=== PATIENT | female | born 1980 | race American Indian/Alaskan Native ===

== ENCOUNTER 2016-09-09 05:12 | Inpatient (IN) | payer MEDICAID, MEDICARE ==
[2016-09-09 05:24] VITALS: BMI 32.8
[2016-09-09 05:25] VITALS: O2SAT 95
--- NOTE | 2016-09-09 05:25 | ED PDOC ---
Psych Transfer Clearance - Clearance Statement Clearance Statement: Reviewed vital signs, lab results and transfer papers. Patient clinically stable for psychiatric admission.
[2016-09-09] MEDS ORDERED: Alum-Mag Hydrox-Simethicone Susp (30 mL) PO PRN (05:42)
[2016-09-09] MEDS ORDERED: DiphenhydrAMINE 50 mg/ml Inj IM PRN (05:42)
[2016-09-09] MEDS ORDERED: Magnesium Hydroxide Susp 30 ml UD PO PRN (05:42)
[2016-09-09 09:26] LABS: T4 9.13 ug/dl (5.5-11.0)
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
[2016-09-09] MEDS: Divalproex 500 mg DR(BID formulation) PO SCH (17:23)
[2016-09-10] MEDS: Divalproex 500 mg DR(BID formulation) PO SCH ×2 (09:19→17:17)
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
[2016-09-11] MEDS: Divalproex 500 mg DR(BID formulation) PO SCH ×2 (09:24→17:48)
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
[2016-09-12] MEDS: Divalproex 500 mg DR(BID formulation) PO SCH ×2 (12:35→17:16)
[2016-09-13] MEDS: Divalproex 500 mg DR(BID formulation) PO SCH ×2 (08:38→17:54)
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
[2016-09-14] MEDS: Divalproex 500 mg DR(BID formulation) PO SCH ×2 (10:59→17:33)
--- NOTE | 2016-09-14 10:59 | PCM.PYCHPN ---
Psychiatric Progress Note - Psychiatric Progress Note Patient seen today, length of contact: discussed with team Patient Chief Complaint: i am fine Problems Identified/Issues Discussed: pt still isolates in room. seems disinterested in groups. she will not allow and increase in risperdal. Diagnostic Results: valproic acid 68 Medication Change: No Medical Record Reviewed: Yes Mental Status Examination - Cognitive Function Orientation: Person, Place, Situation Memory: Intact Attention: WNL Concentration: WNL Association: Loose Fund of Knowledge: WNL Decription of patient's judgement and insights: fair - Mood Mood: Depressed - Affect Affect: Constricted - Speech Speech: Appropriate - Formal Thought Process Formal Thought Process: Paranoia, Loosening of associations Psychotic Thoughts and Behaviors: internally preoccupied - Suicidal Ideation Suicidal Ideation: No - Homicidal Ideation Homicidal Ideation: No Goal/Treatment Plan - Goal/Treatment Plan Need for Continued Stay: Remain at risks for inpatient hospitalization, Severe functional impairment Progress Toward Problem(s) and Goals/Treatment Plan: schizoaffective disorder, bipolar type continue current treatment continue risperdal at current dose and monitor encourage participation in groups refer to [facility] services Estimated Date of D/C: 09/15/16
[2016-09-14 12:19] VITALS: RESP 18
[2016-09-15] MEDS: Divalproex 500 mg DR(BID formulation) PO SCH ×3 (09:35→17:59)
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
[2016-09-15] MEDS: Risperidone M tab 1 MG PO SCH (17:57)
[2016-09-15] MEDS ORDERED: Risperidone M tab 1 MG PO SCH (21:00)
[2016-09-16] MEDS: Risperidone M tab 1 MG PO SCH (08:34)
[2016-09-16] MEDS: Divalproex 500 mg DR(BID formulation) PO SCH ×2 (08:34→17:45)
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
[2016-09-16 11:32] LABS: BASO # 0.1 K/uL (0.0-0.2); BASO % 0.9 % (0.0-2.0); EOS # 0.3 K/uL (0.0-0.7); EOS % 4.1 % (0.0-4.0); HEMOGLOBIN 14.1 g/dL (12.0-16.0); LYMPH # 2.7 K/uL (1.0-4.3); LYMPH % 35.6 % (20.0-40.0); MEAN CELL VOLUME 94.1 fl (81.0-99.0); MEAN CORPUSCULAR HEMOGLOBIN 31.4 pg (27.0-31.0); MEAN CORPUSCULAR HGB CONC 33.4 g/dL (33.0-37.0); MEAN PLATELET VOLUME 8.5 fl (7.2-11.7); MONO # 0.6 K/uL (0.0-0.8); MONO % 7.2 % (0.0-10.0); NEUT % 52.2 % (50.0-75.0); RBC 4.48 Mil/uL (3.80-5.20); RED CELL DISTRIBUTION WIDTH 14.3 % (11.5-14.5); WHITE BLOOD COUNT 7.7 K/uL (4.8-10.8)
[2016-09-16 11:48] LABS: BLOOD UREA NITROGEN 9 mg/dl (7-17); CALCIUM 9.5 mg/dL (8.4-10.2); GFR AFRICAN-AMERICAN > 60; GFR NON-AFRICAN AMERICAN > 60
[2016-09-16 12:44] LABS: SQUAMOUS EPITHIAL < 1 /hpf (0-5); URINE BACTERIA RARE (<OCC); URINE BILIRUBIN NEGATIVE (NEGATIVE); URINE BLOOD LARGE (NEGATIVE); URINE CLARITY CLEAR (Clear); URINE COLOR YELLOW (YELLOW); URINE GLUCOSE (UA) NEG (Normal); URINE LEUKOCYTE ESTERASE NEG Leu/uL (Negative); URINE NITRATE NEGATIVE (NEGATIVE); URINE PROTEIN 30 mg/dL (NEGATIVE); URINE UROBILINOGEN 0.2-1.0 mg/dL (0.2-1.0)
--- NOTE | 2016-09-16 16:09 | CP.PCM.CON ---
History of Present Illness - History of Present Illness History of Present Illness: 35 year old female patient with PMHx schizoaffective disorder, bipolar type podiatry consult with elongated nails and itchy feet b/l. Patient states she has been applying baby lotion onto the bottom of her feet. Patient denies N/V/F/ D/SOB. No other pedal complaints at this time. Review of Systems - Review of Systems Review of Systems: 14 point ROS negative except as per HPI. Past Patient History - Past Social History Smoking Status: Current Some Days Smoker - CARDIAC Hx Cardiac Disorders: No Hx Hypertension: No - PULMONARY Hx Tuberculosis: No - NEUROLOGICAL HX Cerebrovascular Accident: No Hx Seizures: No - HEENT Hx HEENT Problems: No - RENAL Hx Chronic Kidney Disease: No - ENDOCRINE/METABOLIC Hx Endocrine Disorders: No - HEMATOLOGICAL/ONCOLOGICAL Hx Blood Disorders: No Hx Cancer: No Hx Human Immunodeficiency Virus (HIV): No - INTEGUMENTARY Hx Dermatological Problems: Yes Other/Comment: peeled skin to bottom of feet - MUSCULOSKELETAL/RHEUMATOLOGICAL Hx Musculoskeletal Disorders: No - GASTROINTESTINAL Hx Gastrointestinal Disorders: No - GENITOURINARY/GYNECOLOGICAL Hx Genitourinary Disorders: No Hx Sexually Transmitted Disorders: No - PSYCHIATRIC Hx Substance Use: No - SURGICAL HISTORY Hx Surgeries: No - ANESTHESIA Hx Anesthesia: No Meds Allergies/Adverse Reactions: Allergies Allergy/AdvReac Type Severity Reaction Status Date / Time clams Allergy RASH Verified 09/14/16 16:50 mussels Allergy RASH Verified 09/14/16 16:50 - Medications Medications: Current Medications Acetaminophen (Tylenol 325mg Tab) 650 mg PO Q4 PRN PRN Reason: Pain, moderate (4-7) Al Hydrox/Mg Hydrox/Simethicone (Maalox Plus 30 Ml) 30 ml PO Q4 PRN PRN Reason: Dyspepsia Diphenhydramine HCl (Benadryl) 50 mg IM Q6 PRN PRN Reason: Extrapyramidal S/S Unable PO Diphenhydramine HCl (Benadryl) 50 mg PO HS PRN PRN Reason: Sleep Last Admin: 09/16/16 00:36 Dose: 50 mg Diphenhydramine HCl (Benadryl) 50 mg PO Q6 PRN PRN Reason: Anxiety Divalproex Sodium (Depakote Dr(*Bid*)) 500 mg PO BID BRAD Last Admin: 09/16/16 08:34 Dose: 500 mg Haloperidol (Haldol) 5 mg PO Q4 PRN PRN Reason: Agitation Haloperidol Lactate (Haldol) 5 mg IM Q4 PRN PRN Reason: Agitation, Unable to Take PO Lorazepam (Ativan) 2 mg IM Q4 PRN PRN Reason: Anxiety/Agitation,Unable PO Lorazepam (Ativan) 2 mg PO Q4 PRN PRN Reason: Anxiety/Agitation Magnesium Hydroxide (Milk Of Magnesia) 30 ml PO HS PRN PRN Reason: Constipation Risperidone (Risperdal M-Tab) 2 mg PO BID BRAD Trazodone HCl (Desyrel) 50 mg PO HS PRN PRN Reason: Insomnia Last Admin: 09/15/16 21:39 Dose: 50 mg Physical Exam - Constitutional Appears: Well, Non-toxic, No Acute Distress - Extremities Exam Additional comments: Vasc: DP and PT pulses palpable 2/4 b/l. CFT <3 seconds to digits x10. TG warm to warm. Neuro: Gross sensation intact. Derm: Scaling noted throughout entire foot b/l. 1.5 cm fissure noted sub met 5 left foot. Nails 1-5 b/l are elongated, thickened, dystrophic. Ortho: No pain on palpation to foot b/l. - Neurological Exam Neurological exam: Alert, Oriented x3 - Psychiatric Exam Psychiatric exam: Normal Affect, Normal Mood Results - Vital Signs Recent Vital Signs: Last Vital Signs Temp 97.9 F 09/16/16 09:00 Pulse 74 09/16/16 09:00 Resp 18 09/16/16 09:00 BP 101/48 L 09/16/16 09:00 Pulse Ox 95 09/09/16 05:21 - Labs Result Diagrams: 09/16/16 11:25 09/16/16 11:25 Labs: Laboratory Results - last 24 hr 09/16/16 09/16/16 09/16/16 11:25 11:25 12:20 WBC 7.7 RBC 4.48 Hgb 14.1 Hct 42.2 MCV 94.1 MCH 31.4 H MCHC 33.4 RDW 14.3 Plt Count 242 MPV 8.5 Neut % (Auto) 52.2 Lymph % (Auto) 35.6 [place] % (Auto) 7.2 Eos % (Auto) 4.1 H Baso % (Auto) 0.9 Neut # 4.0 Lymph # 2.7 [place] # 0.6 Eos # 0.3 Baso # 0.1 Sodium 138 Potassium 3.9 Chloride 105 Carbon Dioxide 27 Anion Gap 10 BUN 9 Creatinine 0.8 Est GFR ( Amer) > 60 Est GFR (Non-Af Amer) > 60 Random Glucose 87 Calcium 9.5 Urine Color Yellow Urine Clarity Clear Urine pH 7.0 Ur Specific Rand 1.023 Urine Protein 30 Urine Glucose (UA) Neg Urine Ketones Negative Urine Blood Large Urine Nitrate Negative Urine Bilirubin Negative Urine Urobilinogen 0.2-1.0 Ur Leukocyte Esterase Neg Urine RBC (Auto) 473 H Urine Microscopic WBC 2 Ur Squamous Epith Cells < 1 Urine Bacteria Rare Assessment & Plan - Assessment and Plan (Free Text) Assessment: 35 year old female with PMHx schizoaffective disorder with onychomycosis and tinea pedis. Plan: Patient seen and evaluated. Discussed with attending, Dr. Gamboa. Charts, labs, vitals reviewed: afebrile. Nails 1-5 b/l debrided without incident. Rx clotrimazole 1% cream to be applied to webspaces and plantar foot Rx ammonium lactate 12% lotion applied to plantar foot Stable from podiatry standpoint Thank you for consult, please re-consult as needed. Podiatry will sign off on this patient
[2016-09-16] MEDS: Risperidone M TAB 2 MG PO SCH (17:45)
[2016-09-17] MEDS: Divalproex 500 mg DR(BID formulation) PO SCH ×2 (08:18→18:00)
[2016-09-17] MEDS: Risperidone M TAB 2 MG PO SCH ×2 (08:18→18:00)
--- NOTE | 2016-09-17 11:43 | PCM.PYCHPN ---
Psychiatric Progress Note - Psychiatric Progress Note Patient seen today, length of contact: discussed with team Patient Chief Complaint: i feel good Problems Identified/Issues Discussed: pt retracted 48 hour notice. states her thoughts are feeling more focused. she is denying medication side effects. pt is with brighter affect and is more visible in the milieu. Diagnostic Results: valproic acid 68 Medication Change: No ( ) Medical Record Reviewed: Yes Mental Status Examination - Cognitive Function Orientation: Person, Place, Situation Memory: Intact Attention: WNL Concentration: WNL Association: Loose Fund of Knowledge: WNL Decription of patient's judgement and insights: improved i/j - Mood Mood: Depressed - Affect Affect: Constricted - Speech Speech: Appropriate - Formal Thought Process Formal Thought Process: Delusions, Paranoia Psychotic Thoughts and Behaviors: thoughts are more goal directed - Suicidal Ideation Suicidal Ideation: No - Homicidal Ideation Homicidal Ideation: No Goal/Treatment Plan - Goal/Treatment Plan Need for Continued Stay: Remain at risks for inpatient hospitalization, Severe functional impairment Progress Toward Problem(s) and Goals/Treatment Plan: schizoaffective disorder, bipolar type continue current treatment continue risperdal 2mg bid encourage participation in groups refer to [facility] discharge tuesday Estimated Date of D/C: 09/20/16
[2016-09-18] MEDS ORDERED: Amoxicillin-Clav 875-125 mg Tab PO ONE ×3 (09:00→17:00)
[2016-09-18] MEDS: Divalproex 500 mg DR(BID formulation) PO SCH (09:55)
[2016-09-18] MEDS: Risperidone M TAB 2 MG PO SCH (09:55)
[2016-09-18] MEDS ORDERED: Divalproex 500 mg DR(BID formulation) PO ONE (17:00)
[2016-09-18] MEDS: Amoxicillin-Clav 875-125 mg Tab PO SCH (21:00)
[2016-09-19] MEDS: Amoxicillin-Clav 875-125 mg Tab PO SCH ×2 (08:49→21:19)
[2016-09-19] MEDS: Divalproex 500 mg DR(BID formulation) PO SCH ×2 (08:49→16:10)
[2016-09-19] MEDS: Risperidone M TAB 2 MG PO SCH ×2 (08:50→16:10)
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
[2016-09-20] MEDS: Divalproex 500 mg DR(BID formulation) PO SCH (08:28)
[2016-09-20] MEDS: Amoxicillin-Clav 875-125 mg Tab PO SCH (08:28)
[2016-09-20] MEDS: Risperidone M TAB 2 MG PO SCH (08:29)
[2016-09-20 09:11] VITALS: BP 122/73; PULSE 72; TEMP 96.3
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
== END 2016-09-20 13:29 | disposition home or self-care (01) | DRG 885 ==
LOC: H.ER 05:12 → H.PSYCH 05:24
PROVIDERS: ADMIT Psychiatry & Neurology Psychiatry; ATTEND Psychiatry & Neurology Psychiatry
PROC: GZHZZZZ Group Psychotherapy (ICD-10-PCS; principal; 2016-09-09)
PROC: GZ56ZZZ Individual Psychotherapy, Supportive (ICD-10-PCS; 2016-09-09)
DX: F25.0 Schizoaffective disorder, bipolar type (principal); Z59.0 Homelessness; B35.1 Tinea unguium; E66.9 Obesity, unspecified; Z68.32 Body mass index [BMI] 32.0-32.9, adult; B35.3 Tinea pedis; Z91.013 Allergy to seafood